=== PATIENT | female | born 1945 | race Caucasian/White ===

== ENCOUNTER → 2017-03-15 09:06 | Outpatient (CLI) | payer MEDICARE, OTHER | END | disposition home or self-care (01) | LOC: D.ECHO 09:06 | DX: R06.00 Dyspnea, unspecified (principal); I10 Essential (primary) hypertension ==

== ENCOUNTER → 2017-03-28 06:04 | Outpatient (CLI) | payer MEDICARE, OTHER ==
--- NOTE | ~2017-03-28 | HEMODYNAMI ---
PATIENT:RALPH CARMICHAEL MEDICAL RECORD: [id number] : 45 LOCATION:[facility] ADMISSION DATE: 03/28/17 Generatedon:03/28/20178:22 Patient name: RALPH CARMICHAEL Patient #: [id number] SSN: : 1945 Date of study: 03/28/2017 Page: Of Hemodynamic Procedure Report Patient Data Patient Demographics Procedure consent was obtained First Name: RALPH Gender: Female Last Name: JANY : 1945 [facility] Initial: LUCA Age: 71 year(s) Patient #: [id number] Race: Unknown Additional ID: [id number] Contact details Address: [address] [place] [address] State: [place] City: [place] Zip code: [address] Past Medical History Allergies: No known allergies Admission Admission Data Admission Date: 03/28/2017 Admission Time: 6:04 Lab Results Lab Result Date: 03/28/2017 Lab Result Time: 0:00 Biochemistry Name Units Result Min Max Creatinine mg/dl 1.7 --(----)-* 0.6 1.3 CBC Name Units Result Min Max Hemoglobin g/dl 13.5 --(*---)-- 13.5 17.5 Procedure Procedure Types Cath Procedure Diagnostic Procedure [facility] w/Coronaries Miscellaneous Procedures Moderate Sedation up to 15 minutes Peripheral Cath Diagnostic Procedure Cath Peripheral Renal Arteriogram Procedure Description Procedure Date Procedure Date: 03/28/2017 Procedure Start Time: 8:02 Procedure End Time: 8:21 Procedure Staff Name Function Cosme Mercado MD Performing Physician Jon Araujo RN Nurse Harleen Stone RT Scrub Montrell Dillard RT Monitor Procedure Data Cath Procedure Fluoroscopy Diagnostic fluoroscopy Total fluoroscopy Time: 2.9 time: 2.9 min min Diagnostic fluoroscopy Total fluoroscopy dose: 497 dose: 497 mGy mGy Contrast Material Contrast Material Type Amount (ml) Isovue 300 64 Entry Location Entry Primary Successful Side Size Upsize Upsize Entry Closure Succes sful Closure Location (Fr) 1 (Fr) 2 (Fr) Remarks Device Remarks Femoral Right 5 Fr Exoseal artery Estimated blood loss: 10 ml Diagnostic catheters Device Type Used For End Catheter Placement Cordis 5Fr JL 4.0 Procedure Catheter (MP) Cordis 5Fr 3DRC Catheter Procedure (MP) Cordis 5Fr Pigtail Procedure Catheter (MP) Procedure Complications No complications Procedure Medications Medication Administration Route Dosage 0.9% NaCl I.V. 100 ml/hr Oxygen NC 2 l/min Heparin Flush Bag added to field 2 bags (1000units/500ml NS) Lidocaine 2% added to field 20 Versed I.V. 1 mg Fentanyl I.V. 50 mcg Versed I.V. 1 mg Hemodynamics Rest HGB: 13.5 (g/dl) Heart Rate: 86 (bpm) Pressure Samples Time Site Value (mmHg) Purpose Heart Use Rate(bpm) 8:06 AO 178/90(126) Snapshot 93 8:14 LV 176/-8,16 EDP 77 Gradients Valve Time Site Site Mean SEP/DFP Peak To Heart Use 1 2 (mmHg) (sec/min) Peak Rate (mmHg) (bpm) Aortic 8:15 LV AO 68 Snapshots Pre Cath Intra NCS Post Cath Vital Signs Time Heart Resp SPO2 etCO2 CD9kcvc NIBP (mmHg) Rhythm Pain Sedation Rate (ipm) (%) (mmHg) (mmHg) Status Level (bpm) 7:44:48 91 18 98 0 0 195/114(160) NSR 0 (11) 10(A) , No pain 7:49:41 86 14 99 0 0 193/96(139) NSR 0 (11) 10(A) , No pain 7:54:30 83 16 99 0 0 180/93(149) NSR 0 (11) 10(A) , No pain 7:59:21 80 22 99 0 0 193/100(143) NSR 0 (11) 10(A) , No pain 8:04:11 82 13 98 0 0 193/92(159) NSR 0 (11) 9(A) , No pain 8:09:37 77 18 94 0 0 167/74(98) NSR 0 (11) 9(A) , No pain 8:14:22 73 16 93 0 0 157/71(119) NSR 0 (11) 9(A) , No pain 8:19:08 72 10 96 0 0 156/74(113) NSR 0 (11) 9(A) , No pain Medications Time Medication Route Dose Verified Delivered Reason Notes Effec tiveness by by 7:49:18 0.9% NaCl I.V. 100 Jon Jon Per ml/hr Gayle Araujo physician RN RN 7:49:32 Oxygen NC 2 Jon Jon Per l/min Gayle Araujo physician RN RN 7:49:48 Heparin Flush added 2 Jon Jon used for Bag to bags Lorigan Lorigan procedure (1000units/500ml field RN RN NS) 7:50:01 Lidocaine 2% added 20ml Jon Jon for local to vial Lorigan Lorigan anesthetic field RN RN 8:00:41 Versed I.V. 1 mg Jon Jon for Lorigan Lorigan sedation RN RN 8:00:53 Fentanyl I.V. 50 Jon Jon for mcg Lorigan Lorigan sedation RN RN 8:03:23 Versed I.V. 1 mg Jon Jon for Lorigan Lorigan sedation RN improvement nurse Log Time Note 7:30:48 Eliza Counts RT(R) sent for patient. Start room use. 7:32:40 Time tracking: Regular hours 7:32:44 Plan of Care:Hemodynamics will remain stable., Cardiac rhythm will remain stable., Comfort level will be maintained., Respiratory function will remain adequate., Patient/ family verbilizes understanding of procedure., Procedure tolerated without complication., Recovers from procedure without complications.. 7:38:48 Patient received from Pre/Post Procedure Room to CCL 1 Alert and oriented. Tansferred to table in Supine position. 7:38:50 Warm blankets applied, and mark hugger turned on for patient comfort. 7:38:50 Correct patient and procedure confirmed by team. 7:38:52 Signed procedure consent form obtained from patient. 7:38:53 ECG and BP/O2 sat monitors applied to patient. 7:38:53 Full Disclosure recording started 7:43:02 Vital chart was started 7:45:25 Rhythm: sinus rhythm 7:45:40 H&P Date Dictated: 03/23/2017 Within 30 days and on chart., H&P Addendum completed by physician on day of procedure. (MUST COMPLETE FOR ALL OUTPATIENTS). 7:45:41 Pre-procedure instructions explained to patient. 7:45:42 Pre-op teaching completed and patient verbalized understanding. 7:45:44 Family in patients room. 7:45:46 Patient NPO since Midnight. 7:45:52 Patient allergic to No known allergies 7:45:54 Is the patient allergic to Iodine/contrast media? No. 7:45:56 Is patient on blood thinner?Yes 7:45:59 ACC The patient was administered the following blood thiners within the last 24 hours: ACCAspirin, ACCPlavix 7:46:01 Patient diabetic? No. 7:46:26 Previous problem with sedation/anesthesia? No ? 7:46:27 Snore? Yes 7:46:28 Sleep apnea? No 7:46:30 Deviated septum? No 7:46:30 Opens mouth fully? Yes 7:46:31 Sticks out tongue? Yes 7:46:33 Airway obstruction? No ? 7:46:36 Dentures? No ? 7:46:41 Pre procedure: right dorsailis pedis pulse 2+ Normal; easily identifiable; not easily obliterated 7:46:43 Patient pain scale 0/10 ?. 7:46:48 IV patent on arrival in left hand with 0.9% NaCl at [facility]. 7:46:51 Lab results completed and on chart. 7:47:08 Lab Result : Creatinine 1.7 mg/dl 7:47:08 Lab Result : Hemoglobin 13.5 g/dl 7:47:12 Right groin area was prepped with chlora-prep and draped in sterile fashion 7:47:13 Alarms reviewed by R. N. 7:47:14 Sharps counted by scrub and verified by R.N. 7:47:17 Use device set Femoral Dx 7:47:18 Acist Syringe opened to sterile field. 7:47:18 Bag Decanter opened to sterile field. 7:47:19 Medline Cath Pack opened to sterile field. 7:47:21 Acist Hand Control opened to sterile field. 7:47:21 Acist Manifold opened to sterile field. 7:47:22 Tegaderm 4 x 4 opened to sterile field. 7:49:12 Baseline sample Acquired. 7:49:18 0.9% NaCl 100 ml/hr I.V. was administered by Jon Lorigan RN; Per physician; 7:49:32 Oxygen 2 l/min NC was administered by Jon Araujo RN; Per physician; 7:49:48 Heparin Flush Bag (1000units/500ml NS) 2 bags added to field was administered by Jon Araujo RN; used for procedure; 7:50:01 Lidocaine 2% 20ml vial added to field was administered by Jon Araujo RN; for local anesthetic; 7:57:30 --------ALL STOP TIME OUT------ 7:57:31 Final Timeout: patient, procedure, and site verified with staff and physician. All members of the team are in agreement. 7:57:35 Right groin site verified by team. 7:57:40 Physical assessment completed. ASA score P 2 - A patient with mild systemic disease as per Cosme Mercado MD. 7:57:43 Sedation plan: IV Moderate Sedation Versed, Fentanyl 7:59:01 Terumo 5Fr Oneida Sheath opened to sterile field. 7:59:02 St Colin 260cm J .035 wire opened to sterile field. 7:59:03 Diagnostic Infinity 5Fr Multipack catheter opened to sterile field. 8:00:41 Versed 1 mg I.V. was administered by Jon Araujo RN; for sedation; 8:00:53 Fentanyl 50 mcg I.V. was administered by Jon Araujo RN; for sedation; 8:02:28 Procedure started. 8:02:48 Local anesthetic to right femoral artery with Lidocaine 2% by Cosme Mercado MD.INITIAL ACCESS ONLY 8:03:23 Versed 1 mg I.V. was administered by Jon Araujo RN; for sedation; 8:04:11 Procedure type changed to Cath procedure, Diagnostic procedure, LHC, LHC w/Coronaries, Miscellaneous Procedures, Moderate Sedation up to 15 minutes, Peripheral Cath Diagnostic Procedure, Cath Peripheral, Renal Arteriogram 8:04:56 Cook 4Fr Micropuncture Set ([id number]) opened to sterile field. 8:05:24 A 5 Fr sheath was inserted into the Right Femoral artery 8:05:34 A Cordis 5Fr JL 4.0 Catheter () was advanced over the wire and used for Procedure. 8:06:15 LCA angiography performed. 8:09:07 Catheter exchanged over wire. 8:09:49 A Cordis 5Fr 3DRC Catheter (MP) was advanced over the wire and used for Procedure. 8:11:44 RCA angiography performed. 8:13:04 Left renal angiography performed. 8:13:06 Right renal angiography performed. 8:14:17 Catheter exchanged over wire. 8:15:00 A Cordis 5Fr Pigtail Catheter (MP) was advanced over the wire and used for Procedure. 8:15:32 LV angiography performed. 8:15:35 LV gram done using CAO 8:15:43 EF : 70 % 8:15:45 LV hemodynamics recorded. 8:15:49 Injector settings: Ml/sec: 12, Volume: 8, 8:16:12 Catheter removed. 8:16:56 Cordis 5Fr Exoseal opened to sterile field. 8:17:06 Sheath removed intact; hemostasis achieved with Exoseal to the Right Femoral artery. 8:17:10 Procedure ended.(Physican Out) 8:17:22 Fluoroscopy time 02.90 minutes. 8:17:26 Fluoroscopy dose: 497 mGy 8:17:26 Flurop Dose total: 497 8:17:33 Contrast amount:Isovue 300 64ml. 8:17:39 Sharps counted by scrub and verified by R.N. 8:17:47 Insertion/operative site no bleeding no hematoma. 8:17:50 Post-op/insertion site Right Femoral artery dressed using a 4 x 4 and Tegaderm. 8:17:52 Post Procedure Pulses reassessed and unchanged 8:17:56 Post-procedure physical assessment completed. ASA score P 2 - A patient with mild systemic disease as per Cosme Mercado MD. 8:17:59 Post procedure rhythm: unchanged. 8:18:19 Estimated blood loss: 10 ml 8:18:21 Post procedure instruction explained to patient.Patient verbalizes understanding. 8:18:22 Patient needs reinforcement of post procedure teaching. 8:18:55 Procedure Complication : No complications 8:19:17 Procedure and supply charges have been captured, reviewed, submitted and are correct. 8:21:39 Vital chart was stopped 8:21:41 See physician's report for complete and final results. 8:21:48 Report given to Pre/Post Procedure Room. 8:21:52 Patient transfered to Pre/Post Procedure Room with Stretcher. 8:21:54 Procedure ended. 8:21:54 Full Disclosure recording stopped 8:21:57 End room use (Document Last) Device Usage Item Name Manufacture Quantity Catalog Hospital Part Current Minimal Lot# / Number Charge Number Stock Stock Serial# Code Acist Syringe Acist 1 19918 [id number] 105094 090262 20 [employer] Bag Decanter Microtek 1 2002S 816483 67619 970901 5 [employer] Medline Cath Cardinal 1 [id number] 602242 46607 798296 5 Pack Health Acist Hand Acist 1 67156 753895 785698 427901 5 Control [employer] Inc Acist Acist 1 06009 560365 926714 825961 5 Manifold [employer] Inc Tegaderm 4 x 3M 1 1626W 301788 873288 488587 5 4 Terumo 5Fr Terumo 1 YVR571 314757 364643 469376 [address] Colin 1 602553 289348 053890 312983 30 J .035 wire Diagnostic Cardinal 1 FR9864 202297 40978 566843 30 Infinity 5Fr Health Multipack catheter Cook 4Fr Cook Medical 1 D45006 578075 159140 264324 5 Micropuncture Set ([id number]) Cordis 5Fr JL Cardinal 1 [id number] 5 4.0 Catheter Health (MP) Cordis 5Fr Cardinal 1 [id number] 5 3DRC Catheter Health (MP) Cordis 5Fr Cardinal 1 437848 5 Pigtail Health Catheter (MP) Cordis 5Fr Cardinal 1 EX500 915567 839097 865526 10 [facility] [employer] Signature Audit [place] Stage Time Signature Unsigned Intra-Procedure 03/28/2017 Montrell Dillard 8:22:53 AM RT(R) Signatures Monitor : Montrell Dillard RT Signature : Date : Time : [facility] [address] [place] [address]
[~2017-03-28 06:04] MED LIST: ALDACTONE25 MG PO; BAYER CHEWABLE81 MG PO; CATAPRES0.2 MG PO; COZAAR25 MG PO
[2017-03-28 06:34] VITALS: BP 168/91; BMI 22.3
[2017-03-28 06:40] LABS: BASOPHILS 0.5 % (0-2); EOSINOPHILS 4.5 % (0-7); HEMATOCRIT 39.2 % (36.0-48.0); HEMOGLOBIN 13.5 g/dL (12-16); IMMATURE GRANULOCYTES 0.2 % (0-5); LYMPHOCYTES 24.7 % (15-50); MCH 29.1 pg (26.0-34.0); MCHC 34.4 g/dL (31.0-37.0); MCV 84.5 fL (80.0-100.0); MEAN PLATELET VOLUME 8.6 fL (7.4-10.4); MONOCYTES 12.3 % (2-11); NEUTROPHILS 57.8 % (40-80); PLATELET COUNT 173 10x3/uL (130-400); RBC 4.64 10x6/uL (4.00-5.40); RDW 13.2 % (11.5-14.5); WBC 5.8 10x3/uL (4.8-10.8)
[2017-03-28 06:53] LABS: ANION GAP 13.2 mmol/L (8-16); CALCIUM 9.7 mg/dL (8.5-10.1); CARBON DIOXIDE 27.2 mmol/L (21.0-32.0); CREATININE - SERUM 1.7 mg/dL (0.6-1.3); POTASSIUM - SERUM 4.4 mmol/L (3.5-5.1)
--- NOTE | 2017-03-28 08:37 | NUR ---
0830 RECIEVED TO ROOM VIA STRETCHER FROM LEAD PAINTER WITH REPORTS OF A CLEAN CATH. 5 FR EXOSEAL R/GROIN CDI NO BLEEDING NO HEMATOMA NOTED. INSTRUCTED PATIENT TO KEEP HEAD FLAT ON PILLOW WITH RLE STRAIGHT
--- NOTE | 2017-03-28 08:45 | NUR ---
VSS WITH CHEST PAIN DENIED. 5 FR EXOSEAL R/GROIN CDI NO BLEEDING NO HEMATOMA NOTED.
--- NOTE | 2017-03-28 09:27 | NUR ---
R/GROIN REMAINS CDI NO BLEEDING NO HEMATOMA NOTED. PULSES PALPABLE WITH CHEST PAIN DENIED
--- NOTE | 2017-03-28 09:49 | NUR ---
RESTING QUIETLY NO DISTRESS VSS R/GROIN CDI
--- NOTE | 2017-03-28 10:00 | NUR ---
1000 REPOSITIONED TO SITTING WITH HOB UP 30 DEGREES. R/GROIN REMAINS CDI NO BLEEDING NO HEMATOMA NOTED. 1015 PIV REMOVED WITH DRESSING APPLIED. VERBAL AND WRITTEN DISCHARGE GONE OVER WITH PATIENT AND .
--- NOTE | 2017-03-28 10:23 | NUR ---
CHEST PAIN DENIED WITH R/GROIN CDI NO BLEEDING NOTED. PATIENT DENIED DISTRESS AT THIS TIME LEFT VIA WC TO PARKING FOR DISCHARGE HOME WITH FAMILY
== END | disposition home or self-care (01) ==
LOC: D.CATH 06:04
PROVIDERS: Internal Medicine Cardiovascular Disease
DX: I25.10 Atherosclerotic heart disease of native coronary artery without angina pectoris (principal); Q61.4 Renal dysplasia; I10 Essential (primary) hypertension; Z01.812 Encounter for preprocedural laboratory examination

== ENCOUNTER → 2017-05-24 17:13 | Outpatient (CLI) | payer MEDICARE, OTHER ==
[2017-03-28 06:34] VITALS: BMI 22.3
[2017-05-24 19:55] LABS: CHOL - HDL RATIO 3.5 ratio (2.3-4.1); LDL-HDL RATIO 1.9 ratio (1.5-3.5)
== END | disposition home or self-care (01) ==
LOC: D.LABREF 17:13
PROVIDERS: Internal Medicine Cardiovascular Disease
DX: E78.5 Hyperlipidemia, unspecified (principal)

== ENCOUNTER → 2017-06-08 17:18 | Outpatient (CLI) | payer MEDICARE, OTHER ==
[2017-03-28 06:34] VITALS: BMI 22.3
[2017-06-08 18:46] LABS: ANION GAP 15.9 mmol/L (8-16); CARBON DIOXIDE 27.6 mmol/L (21.0-32.0); CREATININE - SERUM 1.3 mg/dL (0.6-1.3); POTASSIUM - SERUM 4.5 mmol/L (3.5-5.1)
== END | disposition home or self-care (01) ==
LOC: D.LABREF 17:18
PROVIDERS: Internal Medicine Cardiovascular Disease
DX: I10 Essential (primary) hypertension (principal)